=== PATIENT | male | born 1970 ===

== ENCOUNTER 2018-07-29 08:58 | Day surgery (SDC) | payer BC ==
[~2018-07-29] VITALS: Ht 180.3 cm; Wt 128.0 kg
[~2018-07-29 08:58] MED LIST: ASCO500T8 PO; ASPI-496 PO; ASPI-515 PO; ATOR-2 PO; CO Q10; CYCL-259 PO; ESZO2TAB22 PO; FISH OIL; HYDR-3653 PO; METO25TA35 PO; PRAS10TA4 PO; TRAM-47 PO; VITAMIN D; ZOLP12.52 PO
[2018-07-29 09:20] VITALS: BP 159/89
[2018-07-29] MEDS ORDERED: NITR0.4T28 SL (09:33)
[2018-07-29] MEDS ORDERED: MIDAZOLAM 1 MG/ML, 5ML ONE ×2 (09:56→10:33)
[2018-07-29] MEDS ORDERED: FENTANYL PF 100 MCG/2ML ONE ×2 (09:56→10:48)
[2018-07-29] MEDS ORDERED: HEPARIN 1,000 UNITS/ML, 10ML ONE (09:57)
[2018-07-29] MEDS ORDERED: BIVALIRUDIN 250 MG ONE (09:57)
[2018-07-29] MEDS ORDERED: VERAPAMIL 2.5 MG/ML, 2ML ONE (09:57)
[2018-07-29] MEDS ORDERED: NITROGLYCERIN 5 MG/ML, 10ML ONE (09:57)
[2018-07-29] MEDS ORDERED: LIDOCAINE 2%, 20ML ONE (09:57)
[2018-07-29] MEDS ORDERED: MIDAZOLAM 1 MG/ML, 2ML ONE (10:48)
[2018-07-29] MEDS ORDERED: DIPHENHYDRAMINE 50 MG/ML, 1ML ONE (10:48)
== END 2018-07-29 14:00 | disposition home or self-care (01) ==
LOC: CACL 08:58
PROVIDERS: ATTEND Internal Medicine Cardiovascular Disease
DX: I25.118 Atherosclerotic heart disease of native coronary artery with other forms of angina pectoris (principal); E78.5 Hyperlipidemia, unspecified; Z79.82 Long term (current) use of aspirin; Z88.8 Allergy status to other drugs, medicaments and biological substances
CPT/HCPCS: 93458; 99156; 99157; C1760; C1769; C1894; J1200; J1644; J2250; J3010; Q9967; J0583